=== PATIENT | male | born 1965 | race Caucasian/White ===

== ENCOUNTER 2017-11-15 11:45 | Emergency (ER) | payer MEDICAID, OTHER ==
[2017-11-15 12:33] LABS: BASO # 0.1 10^3/uL (0.0-0.2); BASO % 0.7 % (0.0-1.0); EOS # 0.2 10^3/uL (0.0-0.50); EOS % 1.7 % (0.0-3.0); HEMATOCRIT 48.3 % (42.0-52.0); HEMOGLOBIN 17.4 g/dl (14.0-18.0); IMMATURE GRANULOCYTE # 0.1 10^3/uL (0-0); IMMATURE GRANULOCYTE % 0.5 % (0-0); LYMPH # 1.2 10^3/uL (1.5-4.5); MEAN CORPUSCULAR HEMOGLOBIN 34.2 pg (27.0-33.0); MEAN CORPUSCULAR VOLUME 94.9 fl (80.0-96.0); MONO # 0.8 10^3/uL (0.0-0.8); MONO % 8.5 % (0.0-5.0); NEUTROPHILS # 7.4 10^3/uL (1.8-7.7); NEUTROPHILS % 76.6 % (36.0-66.0); PLATELET COUNT, AUTOMATED 295 10^3/uL (150-450); RED BLOOD COUNT 5.09 10^6/uL (4.30-6.10); RED CELL DISTRIBUTION WIDTH 11.9 % (11.5-14.5); WHITE BLOOD COUNT 9.6 10^3/uL (4.0-10.0)
[2017-11-15 13:04] LABS: ALBUMIN 4.1 GM/DL (3.2-5.2); ALKALINE PHOSPHATASE 60 U/L (45-117); ALT/SGPT 46 U/L (12-78); ANION GAP 6 MEQ/L (8-16); AST/SGOT 26 U/L (7-37); BILIRUBIN,TOTAL 0.5 MG/DL (0.2-1.0); BLOOD UREA NITROGEN 15 MG/DL (7-18); CALCIUM LEVEL 9.2 MG/DL (8.5-10.1); CARBON DIOXIDE LEVEL 29 MEQ/L (21-32); CHLORIDE LEVEL 101 MEQ/L (98-107); CREATININE FOR GFR 0.91 MG/DL (0.70-1.30); GLOMERULAR FILTRATION RATE > 60.0 (>56); GLUCOSE, FASTING 118 MG/DL (70-105); POTASSIUM SERUM 4.2 MEQ/L (3.5-5.1); SODIUM LEVEL 136 MEQ/L (136-145); TOTAL PROTEIN 8.2 GM/DL (6.4-8.2)
[2017-11-15] MEDS: METOPROLOL TART 50 MG TAB PO ×2 (13:18)
[2017-11-15] MEDS: LOSARTAN 50 MG TAB PO ×2 (13:56)
[2017-11-15 14:47] LABS: ESTIMATED AVERAGE GLUCOSE 108 MG/DL (60-110); HEMOGLOBIN A1c 5.4 %
== END 2017-11-15 15:22 | disposition home or self-care (01) ==
LOC: M ED 11:45
DX: I10 Essential (primary) hypertension (principal); I45.2 Bifascicular block; F32.9 Major depressive disorder, single episode, unspecified; G47.30 Sleep apnea, unspecified; R73.03 Prediabetes; Z79.82 Long term (current) use of aspirin; Z79.84 Long term (current) use of oral hypoglycemic drugs; Z79.899 Other long term (current) drug therapy
CPT/HCPCS: 93005

== ENCOUNTER → 2024-01-03 | Outpatient (CLI) | payer MEDICAID, OTHER ==
[~2024-01-03] MED LIST: AMBI5TAB PO; ASPI81TA86 PO; FLUO20CA22 PO; HYDR-2541 PO; HYDR-3490 PO; HYDR-3716 PO; ISOVUE-300 61% 100ML VIAL As Ordered ONE; LIDOCAINE 1% MDV 20ML VIAL As Ordered ONE; LOPR1TAB6 PO; LOSA100T46 PO; LOSA100T8 PO; METF500T13 PO; METO1TAB7 PO; PANT40TA29 PO; PRAV80TA PO; PROT1TAB2 PO; PROZ20CA11 PO; TOPR50TA PO; TRAZ-252 PO; VENL75TA2 PO; methylPREDNISolone SUSP 40MG/ML 1ML VIAL (DEPO MEDROL) As Ordered ONE
== END ==
LOC: M RAD 14:39
PROVIDERS: ATTEND Physician Assistant Surgical
DX: M16.11 Unilateral primary osteoarthritis, right hip (principal)
CPT/HCPCS: 20610; 77002; J1030; Q9967

== ENCOUNTER → 2024-05-06 | Outpatient (CLI) | payer OTHER ==
[~2024-05-06] MED LIST changes: +FLUO-365 PO; -FLUO20CA22 PO
== END ==
LOC: M RAD 13:17
PROVIDERS: ATTEND Physician Assistant Surgical
DX: M16.11 Unilateral primary osteoarthritis, right hip (principal)
CPT/HCPCS: 20610; 77002; J1010; Q9967

== ENCOUNTER → 2024-07-01 | Outpatient (REF) | payer OTHER, MEDICAID ==
[~2024-07-01] MED LIST changes: -ISOVUE-300 61% 100ML VIAL As Ordered ONE; -LIDOCAINE 1% MDV 20ML VIAL As Ordered ONE; -methylPREDNISolone SUSP 40MG/ML 1ML VIAL (DEPO MEDROL) As Ordered ONE
[2024-07-02 11:43] LABS: CREATININE, URINE 167.7 MG/DL; MAU/CREAT RATIO 8.3 MCG/MG (0.0-30.0)
== END ==
LOC: M LAB REF 11:02
PROVIDERS: ATTEND Physician Assistant
DX: I10 Essential (primary) hypertension (principal)

== ENCOUNTER → 2024-07-02 | Outpatient (REF) | payer MEDICAID ==
[2024-07-02 17:30] LABS: ALBUMIN 3.8 G/DL (3.2-5.2); ALKALINE PHOSPHATASE 96 U/L (46-116); ALT/SGPT 19 U/L (7.0-40); AST/SGOT 11 U/L (<34); BILIRUBIN,TOTAL 0.4 MG/DL (0.3-1.2); BLOOD UREA NITROGEN 23 MG/DL (9-23); CALCIUM LEVEL 9.4 MG/DL (8.5-10.1); CARBON DIOXIDE LEVEL 27 MMOL/L (20-31); CHLORIDE LEVEL 108 MMOL/L (98-107); CHOLESTEROL LEVEL 283 MG/DL (<200); CHOLESTEROL RISK RATIO 7.29 (<5); CREATININE FOR GFR 0.74 MG/DL (0.70-1.30); GLOMERULAR FILTRATION RATE > 60.0 (>56); GLUCOSE, FASTING 166 MG/DL (60-100); HDL CHOLESTEROL 38.8 MG/DL (>40); NON-HDL-C 244.2 MG/DL; POTASSIUM SERUM 4.6 MMOL/L (3.5-5.1); SODIUM LEVEL 139 MMOL/L (136-145); TOTAL PROTEIN 6.6 G/DL (5.7-8.2); TRIGLYCERIDES LEVEL 523 MG/DL (<150)
[2024-07-02 17:33] LABS: TOTAL 25(OH) VITAMIN D 15.7 NG/ML (20.0-100.0)
[2024-07-02 17:59] LABS: HEMOGLOBIN A1c 5.9 % (4.0-6.0)
[2024-07-02 18:09] LABS: THYROID STIMULATING HORMONE 2.786 uIU/ML (0.55-4.78)
== END ==
LOC: M LAB REF 16:16
PROVIDERS: ATTEND Physician Assistant
DX: Z11.9 Encounter for screening for infectious and parasitic diseases, unspecified (principal); E55.9 Vitamin D deficiency, unspecified; E66.9 Obesity, unspecified

== ENCOUNTER 2024-07-26 01:14 | Inpatient (IN) | payer MEDICAID ==
[~2024-07-26] VITALS: Ht 175.3 cm; Wt 123.5 kg
[2024-07-26] MEDS: NS 1,000 ML IV ONE (02:13)
[2024-07-26] MEDS: MORPHINE 4 MG/ML 1ML VIAL IV ONE (02:14)
[2024-07-26 03:06] LABS: VENOUS BASE EXCESS -7.6 (-2.0-2.0); VENOUS HCO3 18.5 MMOL/L (23.0-27.0); VENOUS O2 SATURATION 83.4 % (60.0-80.0); VENOUS PARTIAL PRESSURE O2 51.5 mmHg (30.0-50.0); VENOUS PH 7.284 UNITS (7.330-7.430); VENOUS STANDARD HCO3 18.1 MMOL/L; VENOUS TOTAL CO2 19.8 MMOL/L (24.0-28.0)
[2024-07-26 03:58] LABS: CK-MB VALUE MASS < 1.0 NG/ML (<3.6); LIPASE 69 U/L (12-53)
[2024-07-26 04:00] LABS: ALBUMIN 3.6 G/DL (3.2-5.2); ALKALINE PHOSPHATASE 53 U/L (46-116); ALT/SGPT 21 U/L (7.0-40); AST/SGOT 16 U/L (<34); BILIRUBIN,DIRECT < 0.1 MG/DL (<0.4); BILIRUBIN,TOTAL 0.3 MG/DL (0.3-1.2); BLOOD UREA NITROGEN 24 MG/DL (9-23); CALCIUM LEVEL 8.5 MG/DL (8.5-10.1); CARBON DIOXIDE LEVEL 22 MMOL/L (20-31); CHLORIDE LEVEL 108 MMOL/L (98-107); CPK CREATINE PHOSPHOKINASE 41 U/L (46-171); CREATININE FOR GFR 1.67 MG/DL (0.70-1.30); GLOMERULAR FILTRATION RATE 45.4 (>56); GLUCOSE, FASTING 103 MG/DL (60-100); MB/CK RELATIVE INDEX 2.43 (< OR =4); POTASSIUM SERUM 3.9 MMOL/L (3.5-5.1); SODIUM LEVEL 137 MMOL/L (136-145); TOTAL PROTEIN 6.1 G/DL (5.7-8.2)
[2024-07-26] MEDS ORDERED: ISOVUE-370 76% 100ML VIAL As Ordered ONE (04:22)
[2024-07-26] MEDS: HYDROMORPHONE HCL 0.5 MG/ 0.5 ML SYRINGE IV PRN ×2 (05:16→11:52)
[2024-07-26 06:06] LABS: BASO # 0.1 10^3/uL (0.0-0.2); BASO % 0.7 % (0.0-1.0); EOS # 0.2 10^3/uL (0.0-0.5); EOS % 1.3 % (0.0-3.0); HEMATOCRIT 45.1 % (42.0-52.0); HEMOGLOBIN 15.7 g/dl (13.5-17.5); LYMPH # 3.3 10^3/uL (1.5-5.0); LYMPH % 28.6 % (24.0-44.0); MEAN CORPUSCULAR HEMOGLOBIN 33.5 pg (27.0-33.0); MEAN CORPUSCULAR HGB CONC 34.8 g/dl (32.0-36.5); MEAN CORPUSCULAR VOLUME 96.4 fl (80.0-96.0); MONO # 0.9 10^3/uL (0.0-0.8); MONO % 7.7 % (2.0-8.0); NEUTROPHILS # 7.2 10^3/uL (1.5-8.5); NEUTROPHILS % 61.2 % (36.0-66.0); PLATELET COUNT, AUTOMATED 276 10^3/uL (150-450); RED BLOOD COUNT 4.68 10^6/uL (4.30-6.10); WHITE BLOOD COUNT 11.7 10^3/uL (4.0-10.0)
[2024-07-26 06:07] LABS: CK-MB VALUE MASS < 1.0 NG/ML (<3.6); CPK CREATINE PHOSPHOKINASE 103 U/L (46-171); MB/CK RELATIVE INDEX 0.97 (< OR =4)
[2024-07-26] MEDS: PERCOCET 5MG/325MG TAB PO ONE (06:46)
[2024-07-26] MEDS ORDERED: LORazepam 2 MG TAB PO PRN (08:20)
[2024-07-26 09:09] LABS: HEMATOCRIT 45.7 % (42.0-52.0); HEMOGLOBIN 16.1 g/dl (13.5-17.5); MEAN CORPUSCULAR HEMOGLOBIN 34.5 pg (27.0-33.0); MEAN CORPUSCULAR HGB CONC 35.2 g/dl (32.0-36.5); MEAN CORPUSCULAR VOLUME 97.9 fl (80.0-96.0); PLATELET COUNT, AUTOMATED 260 10^3/uL (150-450); RED BLOOD COUNT 4.67 10^6/uL (4.30-6.10); WHITE BLOOD COUNT 10.9 10^3/uL (4.0-10.0)
[2024-07-26] MEDS: FOLIC ACID 1MG TAB PO SCH (09:22)
[2024-07-26] MEDS: MULTIVITAMINS/MINERALS THERAP 1 TAB PO SCH (09:22)
[2024-07-26] MEDS: THIAMINE 100 MG TAB PO SCH (09:22)
[2024-07-26] MEDS ORDERED: LOSA50TA28 PO (09:22)
[2024-07-26] MEDS ORDERED: ALEV220T22 PO (09:23)
[2024-07-26] MEDS ORDERED: ACET-897 PO (09:23)
[2024-07-26] MEDS ORDERED: HOME MED LIST COMPLETE! XX SCH (09:25)
[2024-07-26 09:33] LABS: ALBUMIN 3.8 G/DL (3.2-5.2); BILIRUBIN,DIRECT 0.1 MG/DL (<0.4); BILIRUBIN,TOTAL 0.4 MG/DL (0.3-1.2); TOTAL PROTEIN 6.4 G/DL (5.7-8.2)
[2024-07-26] MEDS ORDERED: HYDROMORPHONE HCL 0.5 MG/ 0.5 ML SYRINGE IV PRN ×2 (09:40)
[2024-07-26] MEDS ORDERED: GLUCAGON INJ 1MG VIAL SC PRN (09:40)
[2024-07-26] MEDS ORDERED: DEXTROSE 50% 50ML SYRINGE IV PRN (09:40)
[2024-07-26] MEDS ORDERED: GLUCOSE 4 GM CHEW PO PRN (09:40)
[2024-07-26] MEDS: INSULIN LISPRO (NovoLOG) PER UNIT SC SCH ×2 (12:00→20:33)
[2024-07-26 12:20] VITALS: BP 133/84; TEMP 96.6; O2SAT 97
[2024-07-26] MEDS: NS 1,000 ML IV SCH (12:40)
[2024-07-26] MEDS: HEPARIN SOD (PORCINE) 5000UNITS/ML 1ML VIAL/SYRINGE SC SCH (13:53)
[2024-07-26] MEDS: IPRATROPIUM 0.5MG/ALBUTEROL 2.5MG INH SOL UD 3ML (DUONEB) NEB SCH (13:55)
[2024-07-26] MEDS: MORPHINE 4 MG/ML 1ML VIAL IV PRN (14:33)
[2024-07-26] MEDS: CYCLOBENZAPRINE 5MG TABLET PO PRN (15:57)
[2024-07-26] MEDS: oxyCODONE 5MG TAB PO PRN (15:57)
[2024-07-26] MEDS: ACETAMINOPHEN 500 MG TAB PO SCH (15:58)
[2024-07-26] MEDS: DOCUSATE SODIUM 100MG CAPSULE PO SCH (20:32)
[2024-07-26 21:00] VITALS: BP 142/84; TEMP 97.5; O2SAT 98
[2024-07-27] VITALS (43 sets, daily range): BP systolic 149–210; BP diastolic 72–140; TEMP 97.1–97.8; O2SAT 93–99
[2024-07-27] MEDS: RAMELTEON 8 MG TAB (ROZEREM) PO PRN (00:02)
[2024-07-27 06:01] LABS: HEMATOCRIT 41.5 % (42.0-52.0); HEMOGLOBIN 14.7 g/dl (13.5-17.5); MEAN CORPUSCULAR HEMOGLOBIN 34.4 pg (27.0-33.0); MEAN CORPUSCULAR HGB CONC 35.4 g/dl (32.0-36.5); MEAN CORPUSCULAR VOLUME 97.2 fl (80.0-96.0); PLATELET COUNT, AUTOMATED 222 10^3/uL (150-450); RED BLOOD COUNT 4.27 10^6/uL (4.30-6.10); WHITE BLOOD COUNT 7.2 10^3/uL (4.0-10.0)
[2024-07-27 06:23] LABS: BLOOD UREA NITROGEN 22 MG/DL (9-23); CALCIUM LEVEL 8.2 MG/DL (8.5-10.1); CARBON DIOXIDE LEVEL 26 MMOL/L (20-31); CHLORIDE LEVEL 108 MMOL/L (98-107); CREATININE FOR GFR 0.76 MG/DL (0.70-1.30); GLOMERULAR FILTRATION RATE > 60.0 (>56); GLUCOSE, FASTING 108 MG/DL (60-100); POTASSIUM SERUM 4.1 MMOL/L (3.5-5.1); SODIUM LEVEL 137 MMOL/L (136-145)
[2024-07-27] MEDS: **hydrALAZINE** 50 MG TAB PO SCH (07:30)
[2024-07-27] MEDS: LIDOCAINE 5% (LIDODERM) PATCH TD SCH (08:20)
[2024-07-27] MEDS ORDERED: amLODIPine 5 MG TAB PO SCH (09:00)
[2024-07-27] MEDS ORDERED: LABETALOL 100MG/20ML VIAL IV PRN (10:30)
[2024-07-27] MEDS ORDERED: ONDANSETRON 4MG 2ML VIAL IV PRN (11:00)
[2024-07-27] MEDS ORDERED: EPIDURAL/PCA KEYS XX PRN (11:00)
[2024-07-27] MEDS ORDERED: diphenhydrAMINE 50MG/ML VIAL IV PRN (11:00)
[2024-07-27] MEDS ORDERED: NALOXONE INJ 0.4MG/1ML VIAL IV PRN (11:00)
[2024-07-27] MEDS ORDERED: NALBUPHINE HCL 10 MG/ML 1ML AMP IV PRN (11:00)
[2024-07-27] MEDS: fentaNYL CITRATE 500 MCG, BUPIVACAINE HCL 0.5% 31.25 ML in NS 208.75 ML EPIDURAL SCH (15:42)
[2024-07-28] VITALS (14 sets, daily range): BP systolic 132–175; BP diastolic 65–97; TEMP 97–99; O2SAT 94–97
[2024-07-28 08:20] LABS: BASO # 0.1 10^3/uL (0.0-0.2); BASO % 0.6 % (0.0-1.0); EOS # 0.3 10^3/uL (0.0-0.5); EOS % 3.2 % (0.0-3.0); HEMATOCRIT 45.8 % (42.0-52.0); HEMOGLOBIN 16.1 g/dl (13.5-17.5); LYMPH # 2.1 10^3/uL (1.5-5.0); LYMPH % 20.3 % (24.0-44.0); MEAN CORPUSCULAR HGB CONC 35.2 g/dl (32.0-36.5); MEAN CORPUSCULAR VOLUME 96.6 fl (80.0-96.0); MONO # 0.9 10^3/uL (0.0-0.8); NEUTROPHILS # 6.8 10^3/uL (1.5-8.5); NEUTROPHILS % 66.6 % (36.0-66.0); PLATELET COUNT, AUTOMATED 237 10^3/uL (150-450); RED BLOOD COUNT 4.74 10^6/uL (4.30-6.10); WHITE BLOOD COUNT 10.2 10^3/uL (4.0-10.0)
[2024-07-28 08:44] LABS: BLOOD UREA NITROGEN 12 MG/DL (9-23); CALCIUM LEVEL 9.1 MG/DL (8.5-10.1); CARBON DIOXIDE LEVEL 24 MMOL/L (20-31); CHLORIDE LEVEL 108 MMOL/L (98-107); CREATININE FOR GFR 0.59 MG/DL (0.70-1.30); GLOMERULAR FILTRATION RATE > 60.0 (>56); GLUCOSE, FASTING 117 MG/DL (60-100); POTASSIUM SERUM 4.1 MMOL/L (3.5-5.1); SODIUM LEVEL 139 MMOL/L (136-145)
[2024-07-28] MEDS: LOSARTAN 50MG TABLET PO SCH (10:40)
[2024-07-28] MEDS: HEPARIN SOD (PORCINE) 5000UNITS/ML 1ML VIAL/SYRINGE SQ SCH (14:25)
[2024-07-28] MEDS: SENOKOT S TAB PO SCH (20:53)
[2024-07-29] VITALS (9 sets, daily range): BP systolic 117–158; BP diastolic 60–77; TEMP 97.7–98.3; O2SAT 92–95
[2024-07-29 05:57] LABS: BASO # 0.1 10^3/uL (0.0-0.2); BASO % 0.6 % (0.0-1.0); EOS # 0.4 10^3/uL (0.0-0.5); EOS % 4.5 % (0.0-3.0); HEMATOCRIT 45.2 % (42.0-52.0); HEMOGLOBIN 15.8 g/dl (13.5-17.5); LYMPH # 2.2 10^3/uL (1.5-5.0); LYMPH % 27.5 % (24.0-44.0); MEAN CORPUSCULAR HEMOGLOBIN 33.8 pg (27.0-33.0); MEAN CORPUSCULAR VOLUME 96.8 fl (80.0-96.0); MONO # 0.9 10^3/uL (0.0-0.8); MONO % 11.3 % (2.0-8.0); NEUTROPHILS # 4.5 10^3/uL (1.5-8.5); NEUTROPHILS % 55.9 % (36.0-66.0); PLATELET COUNT, AUTOMATED 247 10^3/uL (150-450); RED BLOOD COUNT 4.67 10^6/uL (4.30-6.10); WHITE BLOOD COUNT 8.1 10^3/uL (4.0-10.0)
[2024-07-29 06:32] LABS: BLOOD UREA NITROGEN 17 MG/DL (9-23); CALCIUM LEVEL 9.1 MG/DL (8.5-10.1); CARBON DIOXIDE LEVEL 24 MMOL/L (20-31); CHLORIDE LEVEL 109 MMOL/L (98-107); GLOMERULAR FILTRATION RATE > 60.0 (>56); GLUCOSE, FASTING 105 MG/DL (60-100); POTASSIUM SERUM 3.9 MMOL/L (3.5-5.1); SODIUM LEVEL 140 MMOL/L (136-145)
[2024-07-29] MEDS ORDERED: LORazepam 2 MG TAB PO PRN (08:35)
[2024-07-29] MEDS: FOLIC ACID 1MG TAB PO SCH (09:36)
[2024-07-29] MEDS: MULTIVITAMINS/MINERALS THERAP 1 TAB PO SCH (09:37)
[2024-07-29] MEDS: **hydrALAZINE** 50 MG TAB PO SCH (12:00)
[2024-07-29] MEDS: METOCLOPRAMIDE INJ 10MG/2ML VIAL IV PRN (12:08)
[2024-07-30] VITALS (8 sets, daily range): BP systolic 127–147; BP diastolic 58–74; TEMP 98–98.4; O2SAT 91–95
[2024-07-30] MEDS ORDERED: fentaNYL CITRATE 500 MCG, BUPIVACAINE HCL 0.5% 31.25 ML in NS 208.75 ML EPIDURAL SCH ×2 (12:51→13:15)
[2024-07-31] VITALS (8 sets, daily range): BP systolic 120–153; BP diastolic 61–87; TEMP 97.9–98.8; O2SAT 93–95
[2024-08-01] VITALS (7 sets, daily range): BP systolic 122–156; BP diastolic 60–82; TEMP 97.5–98.6; O2SAT 93–96
[2024-08-01 08:40] LABS: HEMATOCRIT 42.7 % (42.0-52.0); HEMOGLOBIN 14.9 g/dl (13.5-17.5); MEAN CORPUSCULAR HEMOGLOBIN 33.9 pg (27.0-33.0); MEAN CORPUSCULAR HGB CONC 34.9 g/dl (32.0-36.5); MEAN CORPUSCULAR VOLUME 97.3 fl (80.0-96.0); PLATELET COUNT, AUTOMATED 247 10^3/uL (150-450); RED BLOOD COUNT 4.39 10^6/uL (4.30-6.10); WHITE BLOOD COUNT 9.7 10^3/uL (4.0-10.0)
[2024-08-01] MEDS ORDERED: LOSARTAN 50MG TABLET PO SCH (09:00)
[2024-08-01 09:06] LABS: BLOOD UREA NITROGEN 20 MG/DL (9-23); CALCIUM LEVEL 8.6 MG/DL (8.5-10.1); CARBON DIOXIDE LEVEL 24 MMOL/L (20-31); CHLORIDE LEVEL 108 MMOL/L (98-107); CHOLESTEROL LEVEL 224 MG/DL (<200); CREATININE FOR GFR 0.68 MG/DL (0.70-1.30); GLOMERULAR FILTRATION RATE > 60.0 (>56); GLUCOSE, FASTING 121 MG/DL (60-100); LDL CHOLESTEROL 122.2 MG/DL (<100); POTASSIUM SERUM 3.9 MMOL/L (3.5-5.1); SODIUM LEVEL 136 MMOL/L (136-145); TRIGLYCERIDES LEVEL 309 MG/DL (<150)
[2024-08-01] MEDS: LOSARTAN 25 MG TAB PO SCH (10:09)
[2024-08-01] MEDS ORDERED: NALOXONE INJ 0.4MG/1ML VIAL IV PRN ×2 (14:20→15:00)
[2024-08-01] MEDS: MORPHINE 30 MG SA TAB PO ONE (15:23)
[2024-08-01] MEDS: KETOROLAC 30 MG/ML 1ML VIAL IV SCH (15:24)
[2024-08-01] MEDS ORDERED: **hydrALAZINE HCL** 25 MG TAB PO SCH (16:00)
[2024-08-01] MEDS: **hydrALAZINE** 50 MG TAB PO SCH (18:00)
[2024-08-01] MEDS: ACETAMINOPHEN 500 MG TAB PO SCH (18:07)
[2024-08-01] MEDS: ATORVASTATIN 20 MG TAB PO SCH (20:33)
[2024-08-01] MEDS: MORPHINE 30 MG SA TAB PO SCH (20:33)
[2024-08-02] VITALS (10 sets, daily range): BP systolic 133–161; BP diastolic 60–76; TEMP 97–97.8; O2SAT 92–96
[2024-08-02] MEDS: MORPHINE 30 MG TAB **MSIR PO PRN (00:35)
[2024-08-02] MEDS: IPRATROPIUM 0.5MG/ALBUTEROL 2.5MG INH SOL UD 3ML (DUONEB) NEB SCH (07:48)
[2024-08-02] MEDS: MORPHINE 15 MG SA TAB PO ONE (10:04)
[2024-08-02] MEDS: **hydrALAZINE HCL** 25 MG TAB PO SCH (10:04)
[2024-08-02] MEDS ORDERED: MORPHINE 30 MG TAB **MSIR PO ONE (12:00)
[2024-08-02] MEDS: MORPHINE 30 MG TAB **MSIR PO ONE (13:20)
[2024-08-02] MEDS: ISOSORBIDE DIN (ISORDIL) 10MG TAB PO SCH (13:21)
[2024-08-02] MEDS: **hydrALAZINE** 50 MG TAB PO SCH (17:04)
[2024-08-02] MEDS ORDERED: PILL CUTTER 1 EACH XX PRN (19:35)
[2024-08-02] MEDS: TRIAMCINOLONE ACET 0.1% OINTMENT 15GM TOP SCH (21:00)
[2024-08-02] MEDS: MORPHINE 15 MG SA TAB PO SCH (21:14)
[2024-08-02] MEDS: KETOCONAZOLE 2% CREAM TOP SCH (21:16)
[2024-08-03] VITALS (16 sets, daily range): BP systolic 127–157; BP diastolic 73–99; TEMP 97.2–97.9; O2SAT 91–95
[2024-08-03] MEDS: MORPHINE 30 MG TAB **MSIR PO ONE ×4 (00:15→14:52)
[2024-08-03] MEDS ORDERED: HYDR100T PO (14:35)
[2024-08-03] MEDS ORDERED: ACET-683 PO (14:35)
[2024-08-03] MEDS ORDERED: ISOS10TA3 PO (14:35)
[2024-08-03] MEDS ORDERED: MORP1TAB19 PO (14:40)
[2024-08-03] MEDS ORDERED: MORP15TA2 PO (14:40)
[2024-08-03] MEDS ORDERED: NARC1SPR (14:40)
[2024-08-03] MEDS ORDERED: SELF1KIT MC (14:42)
[2024-08-03] MEDS ORDERED: MAGN400O57 PO (14:45)
[2024-08-03] MEDS ORDERED: MIRA3350 PO (14:45)
[2024-08-03] MEDS ORDERED: SENN-52 PO (14:45)
[2024-08-03 15:32] LABS: HEMATOCRIT 41.1 % (42.0-52.0); HEMOGLOBIN 14.3 g/dl (13.5-17.5); MEAN CORPUSCULAR HGB CONC 34.8 g/dl (32.0-36.5); MEAN CORPUSCULAR VOLUME 97.6 fl (80.0-96.0); PLATELET COUNT, AUTOMATED 269 10^3/uL (150-450); RED BLOOD COUNT 4.21 10^6/uL (4.30-6.10); WHITE BLOOD COUNT 11.2 10^3/uL (4.0-10.0)
[2024-08-03 16:00] LABS: BLOOD UREA NITROGEN 24 MG/DL (9-23); CARBON DIOXIDE LEVEL 28 MMOL/L (20-31); CHLORIDE LEVEL 105 MMOL/L (98-107); CREATININE FOR GFR 0.73 MG/DL (0.70-1.30); GLOMERULAR FILTRATION RATE > 60.0 (>56); GLUCOSE, FASTING 126 MG/DL (60-100); POTASSIUM SERUM 4.2 MMOL/L (3.5-5.1); SODIUM LEVEL 136 MMOL/L (136-145)
[2024-08-03] MEDS: IBUPROFEN 400MG TAB PO SCH (18:18)
[2024-08-03] MEDS: CALCIUM CARBONATE 500 MG CHEW U/D PO PRN (23:06)
[2024-08-04 04:00] VITALS: BP 181/88; TEMP 97.7; O2SAT 95
[2024-08-04 04:45] VITALS: BP 124/88
[2024-08-04 12:00] VITALS: BP 138/87; TEMP 97.5; O2SAT 89
[2024-08-04] MEDS: MORPHINE 30 MG TAB **MSIR PO PRN (15:34)
[2024-08-04] MEDS ORDERED: KETO2CR TOP (15:53)
[2024-08-04] MEDS: cloNIDine 0.2 MG TAB PO ONE (16:18)
[2024-08-04 16:19] VITALS: BP 163/89
[2024-08-04 16:30] VITALS: BP 160/89
[2024-08-04] MEDS: cloNIDine 0.1MG TABLET PO ONE (16:30)
[2024-08-04] MEDS ORDERED: MORP15TA2 PO (16:47)
[2024-08-04 16:51] VITALS: BP 149/83
== END 2024-08-04 17:27 | disposition home or self-care (01) | DRG 135 ==
LOC: M ED 01:14 → M ED INP 09:40 → M MSPAV 12:02 → M PCU 07-27 09:50 → OBSVTOIN 07-27 15:09 → M MSPAV 08-03 11:11
PROVIDERS: ADMIT Internal Medicine; ATTEND General Practice
DX: S22.41XA Multiple fractures of ribs, right side, initial encounter for closed fracture (principal); N17.9 Acute kidney failure, unspecified; E66.9 Obesity, unspecified; Z68.38 Body mass index [BMI] 38.0-38.9, adult; E86.0 Dehydration; M16.11 Unilateral primary osteoarthritis, right hip; R55 Syncope and collapse; R73.03 Prediabetes; F10.20 Alcohol dependence, uncomplicated; I16.9 Hypertensive crisis, unspecified; Z96.653 Presence of artificial knee joint, bilateral; I10 Essential (primary) hypertension; M19.90 Unspecified osteoarthritis, unspecified site; Z79.899 Other long term (current) drug therapy; V47.0XXA Car driver injured in collision with fixed or stationary object in nontraffic accident, initial encounter

== ENCOUNTER → 2024-08-08 | Outpatient (REF) | payer MEDICAID ==
[~2024-08-08] MED LIST changes: +ACET-683 PO; +ACET-897 PO; +ALEV220T22 PO; +HYDR100T PO; +ISOS10TA3 PO; +KETO2CR TOP; +LOSA50TA28 PO; +MAGN400O57 PO; +MIRA3350 PO; +MORP15TA2 PO; +MORP1TAB19 PO; +NARC1SPR; +SELF1KIT MC; +SENN-52 PO
[2024-08-08 18:00] LABS: BLOOD UREA NITROGEN 23 MG/DL (9-23); CALCIUM LEVEL 9.4 MG/DL (8.5-10.1); CARBON DIOXIDE LEVEL 28 MMOL/L (20-31); CHLORIDE LEVEL 102 MMOL/L (98-107); CREATININE FOR GFR 0.82 MG/DL (0.70-1.30); GLOMERULAR FILTRATION RATE > 60.0 (>56); GLUCOSE, FASTING 130 MG/DL (60-100); POTASSIUM SERUM 4.2 MMOL/L (3.5-5.1); SODIUM LEVEL 133 MMOL/L (136-145)
== END ==
LOC: M LAB REF 16:41
PROVIDERS: ATTEND Physician Assistant
DX: I10 Essential (primary) hypertension (principal)

== ENCOUNTER → 2024-11-25 | Outpatient (REF) | payer OTHER ==
[2024-11-25 19:07] LABS: MAU/CREAT RATIO 10.3 MCG/MG (0.0-30.0)
== END ==
LOC: M LAB REF 16:55
PROVIDERS: ATTEND Physician Assistant
DX: I10 Essential (primary) hypertension (principal)

== ENCOUNTER → 2024-11-26 | Outpatient (REF) | payer OTHER ==
[2024-11-26 17:25] LABS: HEMOGLOBIN A1c 5.8 % (4.0-6.0)
[2024-11-26 17:32] LABS: BLOOD UREA NITROGEN 31 MG/DL (9-23); CALCIUM LEVEL 9.4 MG/DL (8.5-10.1); CARBON DIOXIDE LEVEL 27 MMOL/L (20-31); CHLORIDE LEVEL 104 MMOL/L (98-107); CHOLESTEROL LEVEL 279 MG/DL (<200); CHOLESTEROL RISK RATIO 5.94 (<5); CREATININE FOR GFR 0.73 MG/DL (0.70-1.30); GLOMERULAR FILTRATION RATE > 60.0 (>56); GLUCOSE, FASTING 195 MG/DL (60-100); HDL CHOLESTEROL 46.9 MG/DL (>40); LDL CHOLESTEROL 161.3 MG/DL (<100); NON-HDL-C 232.1 MG/DL; POTASSIUM SERUM 4.8 MMOL/L (3.5-5.1); SODIUM LEVEL 140 MMOL/L (136-145); TRIGLYCERIDES LEVEL 354 MG/DL (<150)
== END ==
LOC: M LAB REF 16:16
PROVIDERS: ATTEND Physician Assistant
DX: I10 Essential (primary) hypertension (principal); E78.5 Hyperlipidemia, unspecified; R73.03 Prediabetes

== ENCOUNTER → 2025-01-27 | Outpatient (CLI) | payer OTHER ==
[2025-01-27 17:16] LABS: BASO # 0.1 10^3/uL (0.0-0.2); BASO % 0.6 % (0.0-1.0); EOS # 0.4 10^3/uL (0.0-0.5); EOS % 3.3 % (0.0-3.0); HEMATOCRIT 49.5 % (42.0-52.0); HEMOGLOBIN 17.2 g/dl (13.5-17.5); LYMPH # 2.8 10^3/uL (1.5-5.0); MEAN CORPUSCULAR HEMOGLOBIN 31.2 pg (27.0-33.0); MEAN CORPUSCULAR HGB CONC 34.7 g/dl (32.0-36.5); MEAN CORPUSCULAR VOLUME 89.8 fl (80.0-96.0); MONO # 0.9 10^3/uL (0.0-0.8); MONO % 7.2 % (2.0-8.0); NEUTROPHILS # 8.5 10^3/uL (1.5-8.5); NEUTROPHILS % 66.4 % (36.0-66.0); PLATELET COUNT, AUTOMATED 333 10^3/uL (150-450); RED BLOOD COUNT 5.51 10^6/uL (4.30-6.10); WHITE BLOOD COUNT 12.8 10^3/uL (4.0-10.0)
[2025-01-27 17:28] LABS: ALBUMIN 4.2 G/DL (3.2-5.2)
[2025-01-27 17:35] LABS: PERCENT SATURATION 39.1 % (19.7-50.0)
[2025-01-27 17:38] LABS: FERRITIN 48.4 NG/ML (10.5-307.3); HEMOGLOBIN A1c 6.9 % (4.0-6.0)
== END ==
LOC: M LAB 16:27
PROVIDERS: ATTEND Family Medicine Addiction Medicine
DX: Z01.818 Encounter for other preprocedural examination (principal); E11.9 Type 2 diabetes mellitus without complications; M25.551 Pain in right hip; M16.11 Unilateral primary osteoarthritis, right hip

== ENCOUNTER → 2025-09-08 | Outpatient (REF) | payer OTHER ==
[~2025-09-08] MED LIST changes: -AMBI5TAB PO; +MORP15TASA PO; -MORP1TAB19 PO; -PROZ20CA11 PO; +PROZ20CA12 PO; +ZOLP-532 PO
[2025-09-08 17:58] LABS: APPEARANCE, URINE HAZY (CLEAR); BACTERIA, URINE AUTO NEGATIVE (NEGATIVE); BILIRUBIN, URINE AUTO NEGATIVE (NEGATIVE); BLOOD, URINE BLOOD NEGATIVE (NEGATIVE); GLUCOSE, URINE (UA) AUTO 1+ mg/dL (NEGATIVE); KETONE, URINE AUTO TRACE mg/dL (NEGATIVE); LEUKOCYTE ESTERASE, URINE AUTO NEGATIVE (NEGATIVE); MUCUS, URINE SMALL (NEGATIVE); NITRITE, URINE AUTO NEGATIVE (NEGATIVE); PROTEIN, URINE AUTO 1+ mg/dL (NEGATIVE); RBC, URINE AUTO 1 /HPF (0-3); SPECIFIC GRAVITY URINE AUTO 1.027 (1.002-1.035); SQUAMOUS EPITHELIAL CELL UR AU 3 /HPF (0-6); UROBILINOGEN, URINE AUTO 2.0 mg/dL (0.0-2.0); WBC, URINE AUTO 5 /HPF (0-3)
[2025-09-08 18:22] LABS: MALB URINE SIEMENS 73.0 MG/L
[2025-09-08 18:34] LABS: PSA SCREENING 3.66 NG/ML (< 4.00)
[2025-09-08 18:37] LABS: TOTAL 25(OH) VITAMIN D 28.6 NG/ML (20.0-100.0)
[2025-09-08 18:39] LABS: FREE T4 1.04 NG/DL (0.89-1.76)
[2025-09-08 18:42] LABS: ALT/SGPT 12 U/L (7.0-40); AST/SGOT 12 U/L (<34); CALCIUM LEVEL 9.6 MG/DL (8.5-10.1); CARBON DIOXIDE LEVEL 25 MMOL/L (20-31); CHLORIDE LEVEL 102 MMOL/L (98-107); CHOLESTEROL LEVEL 203 MG/DL (<200); CHOLESTEROL RISK RATIO 3.68 (<5); CREATININE FOR GFR 0.80 MG/DL (0.70-1.30); GLOMERULAR FILTRATION RATE > 90.0 (>56); LDL CHOLESTEROL 119.3 MG/DL (<100); NON-HDL-C 147.9 MG/DL; POTASSIUM SERUM 5.1 MMOL/L (3.5-5.1); SODIUM LEVEL 139 MMOL/L (136-145); TRIGLYCERIDES LEVEL 143 MG/DL (<150)
[2025-09-08 18:46] LABS: CREATININE, URINE 262.2 MG/DL; MAU/CREAT RATIO 27.8 MCG/MG (0.0-30.0)
[2025-09-08 18:54] LABS: ESTIMATED AVERAGE GLUCOSE 163.0 MG/DL (60-110)
== END ==
LOC: M LAB REF 16:33
PROVIDERS: ATTEND Physician Assistant
DX: E11.9 Type 2 diabetes mellitus without complications (principal); I10 Essential (primary) hypertension; Z12.5 Encounter for screening for malignant neoplasm of prostate; E78.5 Hyperlipidemia, unspecified; E55.9 Vitamin D deficiency, unspecified

== ENCOUNTER → 2025-09-21 | Outpatient (CLI) | payer OTHER ==
[~2025-09-21] MED LIST changes: +ISOVUE-370 76% 100 ML VIAL ONE
== END ==
LOC: M PLAIMG 07:31
PROVIDERS: ATTEND Physician Assistant
DX: R04.2 Hemoptysis (principal)
CPT/HCPCS: 71260; Q9967

== ENCOUNTER → 2025-10-06 | Outpatient (REF) | payer OTHER ==
[~2025-10-06] MED LIST changes: -ISOVUE-370 76% 100 ML VIAL ONE; -PROZ20CA12 PO; +PROZ20CA25 PO
[2025-10-06 14:23] LABS: BASO # 0.1 10^3/uL (0.0-0.2); BASO % 0.6 % (0.0-1.0); EOS # 0.4 10^3/uL (0.0-0.5); EOS % 2.8 % (0.0-3.0); LYMPH # 3.4 10^3/uL (1.5-5.0); LYMPH % 22.6 % (24.0-44.0); MONO # 1.1 10^3/uL (0.0-0.8); MONO % 7.5 % (2.0-8.0); NEUTROPHILS # 9.9 10^3/uL (1.5-8.5); NEUTROPHILS % 66.1 % (36.0-66.0); PLATELET COUNT, AUTOMATED 402 10^3/uL (150-450)
[2025-10-06 14:48] LABS: INR 0.96
[2025-10-06 14:59] LABS: IRON (FE) 72 UG/DL (65-175)
[2025-10-06 15:00] LABS: ALT/SGPT 16 U/L (7.0-40); AST/SGOT 10 U/L (<34); CALCIUM LEVEL 9.8 MG/DL (8.5-10.1); CARBON DIOXIDE LEVEL 23 MMOL/L (20-31); CHLORIDE LEVEL 104 MMOL/L (98-107); CREATININE FOR GFR 0.80 MG/DL (0.70-1.30); GLOMERULAR FILTRATION RATE > 90.0 (>56); PERCENT SATURATION 24.5 % (19.7-50.0); POTASSIUM SERUM 4.7 MMOL/L (3.5-5.1); SODIUM LEVEL 140 MMOL/L (136-145)
== END ==
LOC: M LAB REF 14:16
PROVIDERS: ATTEND Physician Assistant
DX: E83.119 Hemochromatosis, unspecified (principal); R04.2 Hemoptysis